=== PATIENT | female | born 1980 | race Caucasian/White ===

== ENCOUNTER 2021-09-07 14:56 | Emergency (ER) | payer OTHER, SELFPAY ==
[2021-09-07 15:29] VITALS: BP 166/108; RESP 20; TEMP 36.3; O2SAT 98; BMI 32.6
--- NOTE | 2021-09-07 16:03 | CRLHL7_ITS ---
For Patients: As a result of the Cures Act, medical imaging exams and procedure reports are released immediately into your electronic medical record. You may view this report before your referring provider. If you have questions, please contact your health care provider. INDICATION: Left flank pain. History of stones. TECHNIQUE: CT abdomen and pelvis without contrast. COMPARISON: CT abdomen/pelvis dated 12/19/2020. FINDINGS: Lower chest: No focal consolidation. Evaluation of solid organs is limited secondary to lack of IV contrast administration. Liver: No suspicious focal hepatic lesion. Gallbladder and bile ducts: Unremarkable. Pancreas: Unremarkable. Spleen: Unremarkable. Adrenal glands: Unremarkable. Kidneys: 0.4 cm calculus in the mid left ureter at the level of L4-L5, results in moderate left hydronephrosis and hydroureter. Multiple additional subcentimeter left renal calculi, and punctate right lower pole renal calculi, overall renal stone burden is slightly increased. Retroperitoneum: No lymphadenopathy. Bowel and mesentery: Bowel is not obstructed. Scattered colonic diverticulosis, without evidence of acute diverticulitis. No significant ascites. No pneumoperitoneum. Bladder: Unremarkable for degree of distension. Reproductive organs: Unremarkable. Pelvic lymph nodes: No lymphadenopathy. Vessels: Unremarkable for unenhanced study. Abdominal wall: No acute abdominal wall abnormality. Bones: No suspicious/aggressive focal osseous lesion. IMPRESSION: 1. Obstructing 0.4 cm calculus in the mid left ureter, resulting in moderate left hydronephrosis and hydroureter. 2. Multiple additional subcentimeter bilateral renal calculi, overall renal stone burden has slightly increased on the left. Please note that all CT scans at this facility use dose modulation, iterative reconstruction, and/or weight-based dosing when appropriate to reduce radiation dose to as low as reasonably achievable. Dictated by Eduardo Arellano MD @ 09/07/2021 6:06:28 PM (Electronically Signed)
[2021-09-07 17:44] LABS: Basophils Percent Auto 0.5 % (0.0-3.0); Eosinophils Percent Auto 1.4 % (0.0-7.0); Hematocrit 35.4 % (33.0-51.0); Hemoglobin* 11.5 gm/dL (12.0-16.0); Immature Granulocytes Abs Auto 0.02 K/uL (0.00-0.30); Lymphocytes Percent Auto 23.6 % (20-44); Mean Corpuscular HGB Conc 33 gm/dL (32-36); Mean Corpuscular Hemoglobin 27 pg (26-34); Mean Corpuscular Volume 83 fL (80-100); Monocytes Percent Auto 10.3 % (0.0-11.0); Platelet Count* 275 K/uL (140-440); RDW Coefficient of Variation % 14.3 % (11.5-15.5); Red Blood Count 4.27 m/uL (4.00-5.20); White Blood Count* 13.16 K/uL (4.50-11.00)
[2021-09-07 17:51] LABS: Slide Review Reflex No
--- NOTE | 2021-09-07 17:51 | ED.GENADULT ---
HPI - General Adult General Time Seen by Provider: 17:51 Date Seen: 09/07/21 Chief complaint: Flank Pain Stated complaint: possible kidney stone Time Seen by Provider: 09/07/21 17:42 Source: patient Mode of arrival: ambulatory Limitations: no limitations History of Present Illness HPI narrative: 41-year-old in today with left flank pain. This is been going on off and on for about a month but has been controllable with ibuprofen. Pain in constant today, radiating to the left lower quadrant. She did vomit once earlier. She denies any hematuria dysuria. Denies any fevers or chills. No diarrhea or constipation. She has a history of kidney stones and has had stents and lithotripsy in the past. Pain is better if she lays on her left side and worse when she right or moving. She has been trying to drink a lot of water as she thought she might stone. Review of Systems Status of ROS: Reports: 10 or more systems reviewed and unremarkable except as noted in History and below PFSH PFS Social History Smoking Status: Former smoker What tobacco products do you use: cigarettes Smoking quit date/years: <= 15 years ago Do you use any of these nicotine containing products: None Second hand tobacco smoke exposure: No How often do you have a drink containing alcohol: 2-3 times a week How often do you have six or more drinks on one occasion: Never AUDIT-C Alcohol total score: 3 Non-prescribed substance use: denies use Exam Const: Vital Signs, click to edit/add: Vital Signs - 24 hr 09/07/21 15:29 09/07/21 18:00 09/07/21 18:30 Temperature 97.4 F L Pulse Rate [Left P ulse Oximeter] 77 76 Respiratory Rate 20 Blood Pressure [Ri ght Upper Arm] 166/108 H 152/99 H 143/85 H Pulse Oximetry 98 98 98 09/07/21 19:15 Temperature Pulse Rate [Left P ulse Oximeter] 76 Respiratory Rate Blood Pressure [Ri ght Upper Arm] 146/90 H Pulse Oximetry 98 Documenting provider has reviewed patient's vital signs: yes Common normals: no apparent distress, oriented x3, alert and well nourished HENMT: Common normals: normocephalic, head/scalp atraumatic, external ears normal and external nose normal Head and scalp: normocephalic and atraumatic Nose: external nose normal External ear: external ears normal Eye: Common normals: PERRL and conjunctivae normal Conjunctiva: conjunctiva(e) normal Pupil: PERRL Neck & C-Spine: Common normals: full ROM, no lymphadenopathy and supple Chest: Common normals: palpation of chest normal Resp: Common normals: normal respiratory effort and clear to auscultation bilaterally Auscultation: clear to auscultation bilaterally Cardio: Common normals: regular rate, regular rhythm and no murmurs Rate: regular rate Rhythm: regular rhythm GI: Common normals: Normal to inspection, nondistended, normoactive bowel sounds present, soft to palpation and non-tender Palpation: soft : Bladder/kidney exam: CVA tenderness on the left Back & Pelvis: Common normals: thoracic and lumbar spine normal to inspection General back: CVA tenderness Extremity: Common normals: normal to inspection, full ROM and no pedal edema Neuro: Common normals: oriented x3, CN's II-XII intact bilaterally and no focal motor deficits Sensorium/orientation: alert Psych: Common normals: mental status grossly normal Skin: Common normals: no rashes or lesions noted General skin exam: no rashes or lesions noted Course Reevaluation(s) Reevaluation #1: Reviewed findings so far with patient. She has not yet provided a urine sample. Pain is starting to return, Dilaudid IV is ordered. Time: 19:06 Reevaluation #2: Urinalysis is negative for acute infection. Mild leukocytosis but no other findings for infection, this likely margination. Patient is stable for discharge. Time: 20:20 Vital Signs Vital signs: Initial Vital Signs Temperature 97.4 F L 09/07/21 15:29 Temperature Source Tympanic 09/07/21 15:29 Pulse Rhythm 09/07/21 15:29 Respiratory Rate 20 09/07/21 15:29 Blood Pressure 166/108 H 09/07/21 15:29 Blood Pressure Mean 127 09/07/21 15:29 Pulse Oximetry 98 09/07/21 15:29 Oxygen Delivery Method 09/07/21 15:29 Vital Signs Temperature 97.4 F L 09/07/21 15:29 Respiratory Rate 20 09/07/21 15:29 Blood Pressure 166/108 H 09/07/21 15:29 Pulse Oximetry 98 09/07/21 15:29 Temperature 97.4 F L 09/07/21 15:29 Pulse Rate 76 09/07/21 19:15 Respiratory Rate 20 09/07/21 15:29 Blood Pressure 146/90 H 09/07/21 19:15 Pulse Oximetry 98 09/07/21 19:15 Medical Decision Making MDM Narrative Medical decision making narrative: Patient seen and examined, prior records reviewed. Differential diagnosis includes but not limited to renal colic, pyelonephritis, retroperitoneal abscess, retroperitoneal hemorrhage, strain, sprain, aortic pathology. Patient with intermittent left flank pain for about a month and more constant today. Appears mildly uncomfortable in the emergency department, mild CVA tenderness. No fever, vital a stable. CT scan ordered from triage personally reviewed and interpreted by me demonstrates a left mid ureteral stone measuring about 6 x 4 mm. There is moderate associated hydronephrosis. Labs are pending, Toradol and Zofran ordered Medical Records Medical records reviewed: Yes I reviewed the patient's medical records Lab Data Lab results reviewed: Yes I reviewed the patient's lab results Labs: Lab Results 09/07/21 09/07/21 09/07/21 Range/Units 17:26 17:26 18:43 WBC 13.16 H (4.50-11.00) K/uL RBC 4.27 (4.00-5.20) m/uL Hgb 11.5 L (12.0-16.0) gm/dL Hct 35.4 (33.0-51.0) % MCV 83 (80-100) fL MCH 27 (26-34) pg MCHC 33 (32-36) gm/dL RDW Coeff of Sandrita 14.3 (11.5-15.5) % Plt Count 275 (140-440) K/uL Neut % (Auto) 64.0 (42.0-72.0) % Lymph % (Auto) 23.6 (20-44) % [place] % (Auto) 10.3 (0.0-11.0) % Eos % (Auto) 1.4 (0.0-7.0) % Baso % (Auto) 0.5 (0.0-3.0) % Neut # (Auto) 8.40 H (1.7-7.0) K/uL Lymph # (Auto) 3.10 H (0.90-2.90) K/uL [place] # (Auto) 1.40 H (0.00-0.90) K/UL Eos # (Auto) 0.20 (0.00-0.50) K/uL Baso # (Auto) 0.10 (0.00-0.30) K/uL Abs Immat Gran (auto) 0.02 (0.00-0.30) K/uL Sodium 135 (135-149) mmol/L Potassium 3.7 (3.6-5.1) mmol/L Chloride 105 (96-114) mmol/L Carbon Dioxide 22 (20-32) mmol/L BUN 18 (5-24) mg/dL Creatinine 1.1 (0.5-1.5) mg/dL Estimated Creat Clear 57.53 Glucose 103 (60-115) mg/dL Calcium 8.7 (8.4-10.6) mg/dL Urine Color Yellow (Yellow) Urine Appearance Clear (Clear) Urine pH 6.5 (5.0-8.5) Ur Specific [place] 1.010 (1.000-1.030) Urine Protein Negative (Negative) Urine Glucose (UA) Negative (Negative) Urine Ketones Negative (Negative) Urine Blood Trace-intact A (Negative) Urine Nitrite Negative (Negative) Urine Bilirubin Negative (Negative) Urine Urobilinogen 0.2 (0.2-1.0) Ur Leukocyte Esterase Negative (Negative) Imaging Data CT scan - abdomen: My impression: Ureteral stone Radiologist's impression: 1. Obstructing 0.4 cm calculus in the mid left ureter, resulting in moderate left hydronephrosis and hydroureter. 2. Multiple additional subcentimeter bilateral renal calculi, overall renal stone burden has slightly increased on the left. Discharge Plan Discharge Clinical Impression: Calculus of left ureter Patient Disposition: Home, Self-Care Condition: Stable Instructions: Renal Colic (ED), Ureteral Stones (ED) Additional Instructions: Follow-up with the [facility], 24 hour hotline [phone] to discuss your care and schedule an appointment Take ibuprofen 400 mg every 6 hours alternating with Tylenol 1000 mg every 6 hours. This is your baseline pain regimen. Take oxycodone for breakthrough pain. Use Zofran as needed for nausea or vomiting. Activity Level: No Restrictions Discharge Diet: Regular Stand Alone Forms: [facility] Info Instructions
[2021-09-07 18:00] VITALS: BP 152/99; PULSE 77; O2SAT 98
[2021-09-07] MEDS: ONDANSETRON 2 MG/ML inj 4 MG IVP (18:02)
[2021-09-07 18:05] LABS: Chloride* 105 mmol/L (96-114); Potassium* 3.7 mmol/L (3.6-5.1); Sodium* 135 mmol/L (135-149)
[2021-09-07] MEDS: KETOROLAC 15 MG/ML inj IVP (18:05)
[2021-09-07 18:07] LABS: Creatinine* 1.1 mg/dL (0.5-1.5); Est. Creatinine Clearance* 57.53; Estimated Glomerular Filt Rate 64.34
[2021-09-07 18:08] LABS: Blood Urea Nitrogen* 18 mg/dL (5-24); Calcium* 8.7 mg/dL (8.4-10.6); Carbon Dioxide* 22 mmol/L (20-32); Glucose* 103 mg/dL (60-115)
[2021-09-07 18:30] VITALS: BP 143/85; PULSE 76; O2SAT 98
[2021-09-07] MEDS: HYDROmorphone 0.5 mg/0.5 ml inj IVP (19:12)
[2021-09-07] MEDS: OXYCODONE 5 MG TABLET PO (19:12)
[2021-09-07 19:15] VITALS: BP 146/90; PULSE 76; O2SAT 98
[2021-09-07 19:30] VITALS: BP 150/104; PULSE 74; O2SAT 96
[2021-09-07 20:00] VITALS: BP 143/90; PULSE 70; O2SAT 97
[2021-09-07 20:10] LABS: Appearance Urine Clear (Clear); Bilirubin Urine Negative (Negative); Blood Urine Trace-intact (Negative); Color Urine Yellow (Yellow); Glucose Urine Negative (Negative); Ketones Urine Negative (Negative); Leukocyte Esterase Urine Negative (Negative); Nitrite Urine Negative (Negative); Protein Urine Negative (Negative); Urobilinogen Urine 0.2 (0.2-1.0); pH Urine 6.5 (5.0-8.5)
[2021-09-07 20:25] LABS: Squamous Epithelial Cell Urine Few (None-Few); WBC Urine 0-2 (0-5)
== END 2021-09-07 20:42 | disposition home or self-care (01) ==
LOC: ED 18:41
PROVIDERS: Emergency Provider Family Medicine
DX: N20.1 Calculus of ureter (principal)
CPT/HCPCS: 36415; 74176; 80048; 81001; 85025; 96374; 96375; 99284; 99285; A9270; J1170; J1885; J2405